=== PATIENT | female | born 1980 | race Caucasian/White ===

== ENCOUNTER 2021-03-10 17:59 | Emergency (ER) | payer OTHER ==
[~2021-03-10] VITALS: Ht 175.3 cm; Wt 62.6 kg
[2021-03-10] MEDS ORDERED: ADVIL (19:04)
[2021-03-10] MEDS ORDERED: NAPROXEN500 MG PO (22:47)
[2021-03-10] MEDS ORDERED: PEPCID AC20 MG PO (22:47)
== END 2021-03-10 23:38 | disposition home or self-care (01) ==
LOC: ER 17:59
DX: N93.9 Abnormal uterine and vaginal bleeding, unspecified (principal); R10.2 Pelvic and perineal pain